=== PATIENT | female | born 1955 | race Caucasian/White ===

== ENCOUNTER 2019-05-20 06:31 | Day surgery (SDC) | payer OTHER ==
[2019-05-15 13:54] VITALS: BMI 16.8
[~2019-05-20 06:31] MED LIST: DEXAMETHASONE SOD PHOSPHATE 10 MG/ML 1 ML VIAL IV ONE; HYDROmorphone 0.5 MG/0.5 ML SYRINGE IVP PRN; LIDOCAINE 1% 20 ML VIAL (10MG/ML) FOR IV START INTRADERMA PRN; MIDAZOLAM 2 MG/2 ML VIAL IV PRN; ONDANSETRON 4 MG/2 ML VIAL IVP ONE; SCOPOLAMINE 1.5MG/72HR PATCH TRANSDERM ONE; TETRACAINE 0.5% OPHTH (PF) DROPS 4 ML BTL BOTH EYES ONE
[2019-05-20] MEDS: TETRACAINE 0.5% OPHTH DROPS 15 ML BTL BOTH EYES ONE ×2 (07:27→08:53)
[2019-05-20] MEDS: TROPICAMIDE 1% OPHTH DROPS 2 ML BTL LEFT EYE ONE ×3 (07:29→07:45)
[2019-05-20] MEDS: PHENYLEPHRINE 2.5% OPHTH DRP 2ML OP NR ×4 (07:31→07:49)
[2019-05-20] MEDS: CYCLOPENTOLATE 1% OPHTH SOLN 2 ML BTL OP ONE ×3 (07:33→07:47)
[2019-05-20] MEDS: LACTATED RINGERS 1,000 ML IV SCH ×2 (07:33→08:46)
[2019-05-20] MEDS: MOXIFLOXACIN HCL 0.5% DROPS 3 ML BTL OP ONE ×3 (07:35→07:51)
[2019-05-20 07:37] VITALS: TEMP 98.3
[2019-05-20] MEDS ORDERED: prednisoLONE ACETATE 1% OPHTH DROPS 5 ML BTL LEFT EYE SCH (08:00)
[2019-05-20] MEDS ORDERED: MIDAZOLAM 2 MG/2 ML VIAL ONE (08:47)
[2019-05-20] MEDS ORDERED: fentaNYL (PF) 50 MCG/ML 2 ML AMP ONE (08:47)
[2019-05-20] MEDS ORDERED: BALANCED SALT IRRIG SOLN COMB2 15 ML IRRIG.SOLN INTRAOCULA ONE (08:54)
[2019-05-20] MEDS ORDERED: DUOVISC KIT (BLUE BOX) INTRAOCULA ONE (08:54)
[2019-05-20] MEDS ORDERED: BRIMONIDINE TARTRATE 0.2% DROPS 5 ML BTL LEFT EYE ONE (08:54)
[2019-05-20] MEDS ORDERED: CIPROFLOXACIN 0.3% OPHTH SOLN 5 ML BTL LEFT EYE ONE (08:55)
[2019-05-20] MEDS ORDERED: EPINEPHrine (PF) 0.5 ML in BALANCED SALT IRRIG SOLN COMB2 500 ML IRRIGATION ONE (08:56)
--- NOTE | 2019-05-20 09:38 | P.OP ---
Date of Procedure: 05/20/19 Preoperative Diagnosis: Visually significant cataract, left eye Postoperative Diagnosis: Visually significant cataract, left eye Procedure(s) Performed: Cataract extraction with intraocular lens implant, left eye Implants: [employer] MI60L 23.0 d Anesthesia: local Surgeon: Josy Goncalves Estimated Blood Loss (ml): 0 Condition: stable Description of Procedure: The patient was identified in the preoperative holding area and informed consent was obtained. The patient understood the risks benefits alternatives and indications of cataract surgery. Patient showed the different options including intraocular lens options. The left eye was verified with the patient the patient was taken to the operating room. Patient was given IV sedation from the anesthesia team. Anesthetic drops were placed in the operative eye. The left eye was prepped and draped in usual sterile ophthalmic fashion. A lid speculum was placed in the operative eye and the microscope was swung into position. A paracentesis incision was made inferiorly in the left eye. Lidocaine was injected intracameral into the anterior chamber. Viscoelastic was injected into anterior chamber and a clear corneal incision was made temporally. A cystitome and Utrata forceps were used create a continuous curvilinear capsulorrhexis. Hydrodissection cannula was then used to hydrate and rotate the lens. Phaco was then carried out to divide the lens into 4 quadrants. Quadrants were removed using phaco emulsification. The irrigation-aspiration handpiece was then used to remove the cortex. Provisc was then used to inflate the capsular bag and the intraocular lens was placed in the bag without incident. The irrigation-aspiration handpiece was then used to remove the remaining viscoelastic. The wounds were checked and found to be watertight. The pressure was checked and found to be favorable. The speculum was then julio kristen. One drop of pred acetate and one drop of brimonidine and one drop of ciprofloxacin were placed in the operative eye. A shield was taped over the eye and the patient was taken recovery in stable condition. Patient was given instructions for post op care. Plan - Discharge Summary New Discharge Prescriptions: No Action Sertraline [Zoloft] 12.5 mg PO HS Midodrine HCl [ProAmantine] 2.5 mg PO BID Discharge Medication List Midodrine HCl [ProAmantine] 2.5 mg PO BID 05/15/19 [History] Sertraline [Zoloft] 12.5 mg PO HS 05/15/19 [History] Discharge Disposition: HOME SELF-CARE
[2019-05-20 09:47] VITALS: RESP 16
[2019-05-20 09:56] VITALS: BP 119/72; PULSE 55
== END 2019-05-20 10:22 | disposition home or self-care (01) ==
LOC: OR 06:31
PROVIDERS: ATTEND Ophthalmology
DX: H25.12 Age-related nuclear cataract, left eye (principal); I10 Essential (primary) hypertension; F17.210 Nicotine dependence, cigarettes, uncomplicated; Z79.899 Other long term (current) drug therapy; Z91.041 Radiographic dye allergy status; Z86.73 Personal history of transient ischemic attack (TIA), and cerebral infarction without residual deficits; Z90.49 Acquired absence of other specified parts of digestive tract; Z98.890 Other specified postprocedural states; F32.9 Major depressive disorder, single episode, unspecified
CPT/HCPCS: 66984; V2632; J2250; J0171; J3010

== ENCOUNTER → 2021-04-19 | Outpatient (CLI) | payer OTHER ==
[2021-04-19 11:15] LABS: Basophils # (A) 0.2 k/uL (0-0.2); Basophils % (A) 1 %; Eosinophils # (A) 0.2 k/uL (0-0.7); Eosinophils % (A) 2 %; HCT 46.1 % (34.0-46.0); HGB 14.9 gm/dL (11.4-16.0); Lymphocytes # (A) 2.2 k/uL (1.0-4.8); Lymphocytes % (A) 21 %; MCH 33.3 pg (25.0-35.0); MCHC 32.3 g/dL (31.0-37.0); MCV 102.9 fL (80.0-100.0); Macrocytosis Slight; Mean Platelet Volume 7.6; Monocytes # (A) 0.5 k/uL (0-1.0); Monocytes % (A) 5 %; Neutrophils # (A) 7.3 k/uL (1.3-7.7); Neutrophils % (A) 69 %; Platelet Count 360 k/uL (150-450); RBC 4.48 m/uL (3.80-5.40); RDW 12.3 % (11.5-15.5); WBC 10.5 k/uL (3.8-10.6)
[2021-04-19 11:27] LABS: Appearance,Urine Clear (Clear); Bilirubin,Urine Negative (Negative); Blood,Urine Negative (Negative); Color,Urine Yellow; Glucose,Urine (UA) Negative (Negative); Ketones,Urine Negative (Negative); Leukocyte Esterase,Urine Trace (Negative); Mucus,Urine Few /hpf; Nitrite,Urine Negative (Negative); PH, Urine 6.5 (5.0-8.0); Protein,Urine Trace (Negative); RBC,Urine <1 /hpf (0-5); Specific Gravity,Urine 1.017 (1.001-1.035); Squamous Epithelial Cell,Urine <1 /hpf (0-4); WBC,Urine 2 /hpf (0-5)
[2021-04-19 11:30] LABS: African American GFR (CKD) >90 (>60 ml/min/1.73 sqM); Anion Gap 7 mmol/L; Blood Urea Nitrogen 7 mg/dL (7-17); Calcium 10.2 mg/dL (8.4-10.2); Carbon Dioxide 28 mmol/L (22-30); Chloride 104 mmol/L (98-107); Glucose 95 mg/dL (74-99); Non-African American GFR(CKD) >90 (>60 ml/min/1.73 sqM); Potassium 4.9 mmol/L (3.5-5.1); Sodium 139 mmol/L (137-145)
== END | disposition home or self-care (01) ==
LOC: LABPAT 10:09
PROVIDERS: ATTEND Urology
DX: Z01.812 Encounter for preprocedural laboratory examination (principal); N39.0 Urinary tract infection, site not specified; N28.1 Cyst of kidney, acquired
CPT/HCPCS: 36415; 80048; 81001; 85025; 87086

== ENCOUNTER 2021-04-27 10:17 | Observation (INO) | payer OTHER ==
[~2021-04-27 10:17] MED LIST changes: -DEXAMETHASONE SOD PHOSPHATE 10 MG/ML 1 ML VIAL IV ONE; +DEXAMETHASONE SOD PHOSPHATE 4 MG/ML 1 ML VIAL IV ONE; +HEPARIN SODIUM,PORCINE/PF 5,000 UNIT/0.5 ML SYRINGE SQ PRN; -LIDOCAINE 1% 20 ML VIAL (10MG/ML) FOR IV START INTRADERMA PRN; -TETRACAINE 0.5% OPHTH (PF) DROPS 4 ML BTL BOTH EYES ONE
[2021-04-27] MEDS: LACTATED RINGERS 1,000 ML IV SCH (10:42)
[2021-04-27] MEDS ORDERED: LIDOCAINE 1% (10MG/ML) FOR IV START INTRADERMA ONE (10:42)
--- NOTE | 2021-04-27 11:44 | P.HPIHPCON ---
History of Present Illness H&P Date: 04/27/21 This is a 65 yo female with history of bilateral renal cysts. She is symptomatic from her cyst, and they are palpable on physical exam.large cyst on the right measured 6.6 cm, and on the left measured 5.5 cm, there are multiple bilateral cysts. Discussed with her the option of doing a bilateral cyst decortication. Discussed with her the risk which includes but not limited to bleeding, infection, injury to the kidney. Discussed given her multiple previous surgeries she is at increased risk of complications which includes but not limited to injury to the bowel, the liver, the spleen. Discussed the potential that she might have persistent pain even with cyst decortication. Discussed the potential recurrence. Discussed with her the risk from anesthesia. She understood all the risk and agreed to proceed with a robotic bilateral cyst decortication Consent for Procedure: I have explained the operation/procedure to the patient, including the risks, benefits, side effects, alternative therapies (including not receiving the proposed treatment or service), the likelihood of the patient achieving his/her goals, and potential recuperation problems for the procedure/sedation/analgesia, as well as any blood products, if indicated. I also explained to the patient the risks, benefits and side effects of the alternatives, as well as the risks related to not receiving the proposed procedure, care, treatment, or services. Past Medical History Past Medical History: CVA/TIA, Pneumonia, Seizure Disorder Additional Past Medical History / Comment(s): hx LOW BLOODPRESSURE "states heart stopped for 15-seconds" and STATES SYNCOPE- PASSES OUT(prior to pacemaker)., STATES SYMPTOMS OF TIA's 10 YEARS AGO- NO RESIDUAL EFFECTS. varicose veins, hx IBS, cysts on jesús kidneys, History of Any Multi-Drug Resistant Organisms: None Reported Past Surgical History: Breast Surgery, Cholecystectomy, Pacemaker Additional Past Surgical History / Comment(s): OVARIAN CYSTS removed, tilt table test, left breast biopsy, left cataract Past Anesthesia/Blood Transfusion Reactions: Motion Sickness, Postoperative Nausea & Vomiting (PONV) Type of Cardiac Device: Permanent Pacemaker Device Placement Date:: 08/25/2019 Smoking Status: Current every day smoker - Past Family History Sister(s) Family Medical History: Cancer Additional Family Medical History / Comment(s): breast Father Family Medical History: Myocardial Infarction ([place]) Mother Family Medical History: Congestive Heart Failure (CHF), COPD Medications and Allergies Home Medications Medication Instructions Recorded Confirmed Type Sertraline [Zoloft] 12.5 mg PO HS 05/15/19 04/27/21 History Fludrocortisone [Florinef] 0.05 mg PO DAILY 04/24/21 04/27/21 History Hyoscyamine Sulfate [Hyoscyamine 0.125 mg SL DAILY PRN 04/24/21 04/27/21 History Sulfate SL] Ondansetron [Zofran] 4 mg PO DAILY PRN 04/24/21 04/27/21 History Allergies Allergy/AdvReac Type Severity Reaction Status Date / Time Iodinated Contrast Media Allergy Unknown Nausea & Verified 04/24/21 11:01 [Iodinated Contrast- Oral Vomiting and IV Dye] antibioitics(not sure names) Allergy Nausea & Uncoded 04/24/21 11:01 Vomiting Surgical - Exam Vital Signs Temp Pulse Resp BP Pulse Ox 98.1 F 60 16 133/60 97 04/27/21 10:35 04/27/21 10:35 04/27/21 10:35 04/27/21 10:35 04/27/21 10:35 - General well developed, well nourished - Eyes PERRL, normal ocular movement - ENT normal nares, normal mucosa Assessment and Plan Assessment: 65-year-old female history of bilateral renal cysts -OR for bilateral cyst decortication
[2021-04-27] MEDS ORDERED: NEOSTIGMINE 1 MG/ML 10 ML VIAL ONE (12:09)
[2021-04-27] MEDS ORDERED: fentaNYL (PF) 50 MCG/ML 2 ML AMP ONE (12:09)
[2021-04-27] MEDS ORDERED: MIDAZOLAM 2 MG/2 ML VIAL ONE (12:09)
[2021-04-27] MEDS ORDERED: LIDOCAINE 1% INJ 10MG/ML (20 ML MDV) ONE (12:09)
[2021-04-27] MEDS ORDERED: SUCCINYLCHOLINE CHLORIDE 100 MG/5 ML SYR IV ONE (12:09)
[2021-04-27] MEDS ORDERED: PROPOFOL 10 MG/ML 20 ML VIAL IV ONE (12:09)
[2021-04-27] MEDS ORDERED: GLYCOPYRROLATE 0.2 MG/ML 2 ML VIAL ONE (12:09)
[2021-04-27] MEDS ORDERED: ROCURONIUM 10 MG/ML (5 ML VIAL) IV ONE (12:09)
[2021-04-27] MEDS ORDERED: HYDROmorphone (PF) 1 MG/ML ONE (12:09)
[2021-04-27] MEDS ORDERED: BUPIVACAINE (PF) 0.5% 30 ML VIAL SQ ONE (12:48)
[2021-04-27] MEDS ORDERED: LACTATED RINGERS 1,000 ML IV ONE (13:00)
[2021-04-27] MEDS ORDERED: ONDANSETRON 4 MG TAB PO PRN (15:02)
[2021-04-27] MEDS ORDERED: HYOSCYAMINE SULFATE 0.125 MG TAB PO PRN (15:02)
--- NOTE | 2021-04-27 15:02 | P.OP ---
Date of Procedure: 04/27/21 Preoperative Diagnosis: Bilateral renal cyst Postoperative Diagnosis: Same Procedure(s) Performed: Robotic-assisted laparoscopic bilateral cyst decortication, lysis of adhesion Implants: none Anesthesia: PEPE Surgeon: Kamar Clement Hydraulic Modeling Engineer #1: Shannon Max Estimated Blood Loss (ml): 25 Pathology: other (bilateral renal cyst) Condition: stable Disposition: PACU Indications for Procedure: This is a 65 yo female with history of bilateral renal cysts. She is symptomatic from her cyst, and they are palpable on physical exam.large cyst on the right measured 6.6 cm, and on the left measured 5.5 cm, there are multiple bilateral cysts. Discussed with her the option of doing a bilateral cyst decortication. Discussed with her the risk which includes but not limited to bleeding, infection, injury to the kidney. Discussed given her multiple previous surgeries she is at increased risk of complications which includes but not limited to injury to the bowel, the liver, the spleen. Discussed the potential that she might have persistent pain even with cyst decortication. Discussed the potential recurrence. Discussed with her the risk from anesthesia. She understood all the risk and agreed to proceed with a robotic bilateral cyst decortication Operative Findings: 2 large renal cyst on the right, extensive adhesion along the right side 2 large cysts on the left, when seen along the upper pole, additional parapelvic cyst Description of Procedure: The patient was taken to the operating room . General anesthesia was induced. She was prepped and draped in sterile fashion, and was placed in modified flank position attention was then carried to the left side first.. All pressure points were padded. The abdominal insufflation was achieved with the Veress needle. A 8 mm camera port was placed. Robotic trocars and assistant professor of sociology ports were placed under direct vision. The robot was docked into place. Patient had adhesion along the left upper quadrant, the omentum was stuck along the medial upper quadrant, this was lysed down using the robot . The colon was mobilized medially by incising along the white line of Toldt. The spleen and the pancreas were further mobilized, at this time the upper pole cyst was exposed an incision was made in the cyst the cyst was drained, the cyst wall was excised and sent to pathology. The edges of the cyst were cauterize. This time attention was carried to the parapelvic cysts. The kidney was further mobilized along the psoas plane. The parapelvic cysts were in close proximity to the hilum, making complete excision of the cyst wall not feasible given the risk of injuring the renal vessels. At this time a window was made in the cyst and the cyst was drained. No additional cyst were visualized. This time the robot was de- docked. All the robotic incisions were closed using 4-0 moncyrl. The midline incision was covered with a Tegaderm. At this time the patient was positioned for the right side. The 12 mm port was placed through the previous midline incision, and the camera was advanced through the port. Laparoscopy showed extensive adhesion along the right upper quadrant from her previous open cholecystectomy., A 5 mm port was placed in the upper quadrant and using the laparoscopic scissors lysis of adhesion was performed, more than 45 minutes was spent lysing adhesions given her extensive adhesions. Following the lysis of adhesion was able to place the 4 robotic trocors. The robot was docked in place. The colon was mobilized, the duodenum was kocherized to better expose the renal cysts. At this time the 2 large lower pole renal cysts were visualized, incision was made in the cyst and the cyst was drained, the cyst wall was excised and sent to pathology, both cyst were excised. Both areas of the cyst edges were cauterized. There was no evidence of bleeding, and all counts were correct. The robot was undocked, Fascia of midline incision was closed using 0 Vicryl Skin was closed with 4-0 moncryl subcuticular sutures and Dermabond. Local anesthetic was infiltrated. The patient was awoken from general anesthesia in stable condition. Please refer to the final pathology report for final diagnosis.
[2021-04-27] MEDS ORDERED: HYDROmorphone 1 MG/ML 1 ML SYRINGE IVP PRN (15:03)
[2021-04-27] MEDS ORDERED: ALBUTEROL NEBULIZED 2.5 MG/3 ML INHALATION ONE ×2 (15:20→15:22)
[2021-04-27 15:36] VITALS: RESP 16
[2021-04-27] MEDS: KETOROLAC 15 MG/ML 1 ML VIAL IVP SCH (17:40)
[2021-04-27] MEDS: D5-0.45% NACL WITH KCL 20MEQ/L 1,000 ML IV SCH (18:04)
[2021-04-27] MEDS ORDERED: SERTRALINE 25 MG TAB PO SCH (21:00)
[2021-04-27] MEDS: ONDANSETRON 4 MG/2 ML VIAL IVP PRN (21:24)
[2021-04-28] MEDS: HEPARIN SODIUM,PORCINE/PF 5,000 UNIT/0.5 ML SYRINGE SQ SCH ×3 (00:25→14:04)
[2021-04-28] MEDS: KETOROLAC 15 MG/ML 1 ML VIAL IVP SCH ×3 (00:25→12:26)
[2021-04-28] MEDS: LACTATED RINGERS 1,000 ML IV SCH (00:26)
[2021-04-28] MEDS: ONDANSETRON 4 MG/2 ML VIAL IVP PRN (04:50)
[2021-04-28] MEDS ORDERED: ACETAMINOPHEN TAB 325 MG TAB PO PRN (04:57)
[2021-04-28 08:49] VITALS: BP 95/59; PULSE 65; TEMP 98.2
[2021-04-28] MEDS ORDERED: FLUDROCORTISONE 0.1 MG TAB PO SCH (09:00)
[2021-04-28] MEDS: D5-0.45% NACL WITH KCL 20MEQ/L 1,000 ML IV SCH (12:26)
[2021-04-28 13:04] VITALS: BMI 16.7
--- NOTE | 2021-04-28 17:50 | P.DS ---
Providers Date of admission: 04/28/21 15:44 Attending physician: Kamar Clement MD Primary care physician: Chaim Beebe [facility] Course: This is a 65-year-old female history of bilateral renal cysts. She symptomatic from her cyst. She underwent a robotic-assisted laparoscopic cyst decortication, please see op note dated April 27 for surgery detail. Patient was admitted to the hospital postoperatively. She did well in the postoperative period, Pham was removed on postop day #1. Patient was discharged home on postoperative day #1. At time of discharge she was tolerating a diet, ambulating, and pain was well-controlled Patient Condition at Discharge: Fair Plan - Discharge Summary Discharge Rx Participant: No New Discharge Prescriptions: New traMADol HCL [Ultram] 50 mg PO Q6HR PRN 3 Days #12 tab PRN Reason: Pain No Action Sertraline [Zoloft] 12.5 mg PO HS Hyoscyamine Sulfate [Hyoscyamine Sulfate SL] 0.125 mg SL DAILY PRN PRN Reason: cramps Fludrocortisone [Florinef] 0.05 mg PO DAILY Ondansetron [Zofran] 4 mg PO DAILY PRN PRN Reason: Nausea Discharge Medication List Sertraline [Zoloft] 12.5 mg PO HS 05/15/19 [History] Fludrocortisone [Florinef] 0.05 mg PO DAILY 04/24/21 [History] Hyoscyamine Sulfate [Hyoscyamine Sulfate SL] 0.125 mg SL DAILY PRN 04/24/21 [History] Ondansetron [Zofran] 4 mg PO DAILY PRN 04/24/21 [History] traMADol HCL [Ultram] 50 mg PO Q6HR PRN 3 Days #12 tab 04/28/21 [Rx] Patient Instructions/Handouts: Kidney Cyst (GEN) Activity/Diet/Wound Care/Special Instructions: No heavy lifting or straining for 4 weeks You may shower no baths Discharge Disposition: HOME SELF-CARE
== END 2021-04-28 15:45 | disposition home or self-care (01) ==
LOC: OR 10:17 → 4SSUR 16:01 → OR 23:09 → 4SSUR 04-28 15:44
PROVIDERS: ADMIT Urology; ATTEND Urology
DX: N28.1 Cyst of kidney, acquired (principal); G40.909 Epilepsy, unspecified, not intractable, without status epilepticus; K58.9 Irritable bowel syndrome, unspecified; I83.90 Asymptomatic varicose veins of unspecified lower extremity; F17.210 Nicotine dependence, cigarettes, uncomplicated; Z79.52 Long term (current) use of systemic steroids; Z79.899 Other long term (current) drug therapy; Z88.1 Allergy status to other antibiotic agents; Z91.041 Radiographic dye allergy status; Z87.01 Personal history of pneumonia (recurrent); Z86.73 Personal history of transient ischemic attack (TIA), and cerebral infarction without residual deficits; Z95.0 Presence of cardiac pacemaker; Z90.49 Acquired absence of other specified parts of digestive tract; Z98.42 Cataract extraction status, left eye; Z87.42 Personal history of other diseases of the female genital tract; Z98.890 Other specified postprocedural states; Z86.79 Personal history of other diseases of the circulatory system; Z80.3 Family history of malignant neoplasm of breast; Z82.49 Family history of ischemic heart disease and other diseases of the circulatory system; Z82.5 Family history of asthma and other chronic lower respiratory diseases
CPT/HCPCS: 50541; S2900; 86850; 86900; 86901; 88305

== ENCOUNTER → 2021-11-09 | Outpatient (CLI) | payer OTHER ==
--- NOTE | 2021-11-09 14:14 | US ---
EXAMINATION TYPE: US kidneys/renal and bladder DATE OF EXAM: 11/09/2021 COMPARISON: NONE CLINICAL HISTORY: N28.1 RENAL CYST. renal cysts EXAM MEASUREMENTS: Right Kidney: 8.4 x 4.0 x 4.8 cm Left Kidney: 7.4 x 3.6 x 3.3 cm Right Kidney: Cystic area lower pole measuring 3.2 x 2.7 x 3.2 cm. Left Kidney: Mild amount of hydronehrosis seen Bladder: anechoic Bilateral Jets seen: yes IMPRESSION: 1. Right renal cyst. 2. Mild left hydronephrosis
== END | disposition home or self-care (01) ==
LOC: RADUSWWP 13:25
PROVIDERS: ATTEND Urology
DX: N28.1 Cyst of kidney, acquired (principal); N13.30 Unspecified hydronephrosis
CPT/HCPCS: 76770

== ENCOUNTER → 2022-04-10 | Outpatient (CLI) | payer OTHER ==
--- NOTE | 2022-04-11 09:09 | US ---
EXAMINATION TYPE: US pelvic complete DATE OF EXAM: 04/10/2022 COMPARISON: NONE CLINICAL HISTORY: 66-year-old female R10.31 RT GROIN PAIN. Right pelvic and groin pain TECHNIQUE: Transabdominal sonographic images of the pelvis were acquired. Date of LMP: 25 years ago FINDINGS: EXAM MEASUREMENTS: Uterus: 5.6 x 2.4 x 2.7 cm Endometrial Stripe: 0.6 cm Right Ovary: 2.1 x 1.0 x 1.3 cm Left Ovary: 2.1 x 1.1 x 1.4 cm 1. Uterus: retroverted and otherwise within normal limits 2. Endometrium: Borderline thickened for a postmenopausal female. 3. Right Ovary: wnl 4. Left Ovary: wnl 5. Bilateral Adnexa: wnl 6. Posterior cul-de-sac: wnl Plate Shear Operator notes: Scanned right adnexa/groin at patients area of concern - appears wnl IMPRESSION: 1. Retroverted uterus. Endometrial stripe borderline thickened for a postmenopausal female. Query any bleeding. Recommend short interval follow-up with transvaginal scanning if possible, such as in 3 mo nths, to reassess stripe thickness. 2. Additional scanning along the right adnexa/groin region. No specific sonographic abnormality is se en.
--- NOTE | 2022-04-20 15:50 | MM ---
Reason for Exam: Screening (asymptomatic). Last mammogram was performed 5 year(s) and 0 month(s) ago. Patient History: Menarche at age 16. First Full-Term at age 25. Postmenopausal. 09/09/2016, MG stereo VAD BX LT - 2 on the Left side. Sister had breast cancer, right, age 60. Sister had breast cancer, left, age 60. Risk Values: Jo 5 year model risk: 7.0%. NCI Lifetime model risk: 25.5%. Tissue Density: The breast tissue is heterogeneously dense. This may lower the sensitivity of mammography. Findings: Analyzed By CAD. Left-sided retroareolar asymmetric nodular density noted. Additional views are recommended. Benign calcifications present. No evidence for right-sided mass or distortion. Overall Assessment: Incomplete: need additional imaging evaluation, BI-RAD 0 Management: Diagnostic Mammogram of the left breast. A clinical breast exam by your physician is recommended on an annual basis and results should be correlated with mammographic findings. Electronically signed and approved by: James Alberts M.D. Radiologis
== END | disposition home or self-care (01) ==
LOC: RADMAMWWP 15:14
PROVIDERS: ATTEND Family Medicine
DX: Z12.31 Encounter for screening mammogram for malignant neoplasm of breast (principal); N85.4 Malposition of uterus; Z78.0 Asymptomatic menopausal state; Z80.3 Family history of malignant neoplasm of breast
CPT/HCPCS: 76856; 77067

== ENCOUNTER → 2022-05-28 | Outpatient (CLI) | payer OTHER ==
--- NOTE | 2022-05-28 19:25 | BD ---
EXAMINATION TYPE: Axial Bone Density DATE OF EXAM: 05/28/2022 COMPARISON: NONE CLINICAL HISTORY: 66 years year old Female. ICD-10 CODE: M810 KNOWN OSTEOPOROSIS, Height: 63 Weight: 98.6 FRAX RISK QUESTIONS: Alcohol (3 or more units per day): NO Family History (Parent hip fracture): NO Glucocorticoids (More than 3mos): NO History of Fracture in Adulthood: NO Secondary Osteoporosis: 1. Type 1 Diabetes: NO 2. Hyperthyroidism: NO 3. Menopause before 45: NO 4. Malnutrition: YES 5. Chronic liver disease: NO Rheumatoid Arthritis: NO Current Tobacco Use: YES RISK FACTORS HISTORY OF: Hip Fracture (Right/Left): NO Spine Fracture: NO History of Wrist Fracture: NO Surgery to Spine/Hip(right/left)/Wrist (right/left): NO Family History of Osteoporosis: NO Active: NO Diet low in dairy products/other sources of calcium: NO Postmenopausal woman: YES Take estrogen and/or progesterone medications: NO Lost more than 2 inches in height since high school: NO Frequent falls: NO Poor Health: YES Hyperparathyroidism: NO Adrenal Insufficiency: NO MEDICATIONS: Prednisone or other steroids: NO Thyroid Medications: NO Osteoporosis Medications: NO Additional Medications: DEPRESSION MEDS, VIT D, EXAM MEASUREMENTS: Bone mineral densitometry was performed using the [facility]. Bone mineral density as measured about the Lumbar spine is: ----- L1-L4(G/cm2): 0.941 T Score Values are as follows: ----- L1: -2.4 ----- L2: -2.4 ----- L3: -1.4 ----- L4: -2.0 ----- L1-L4: -2.0 BASELINE STUDY Bone mineral density about the R hip (g/cm2): 0.810 Bone mineral density about the L hip (g/cm2): 0.776 T Score values are as follows: -----R Neck: -1.6 -----L Neck: -1.9 -----R Total: -2.7 -----L Total: -2.3 BASELINE STUDY FRAX%s: The graph provided illustrates a 8.6% chance for a major osteoporotic fx and a 2.2% chance fo r the hips probability for fx in 10 years time. IMPRESSION: Osteoporosis (T Score less than -2.5). There is increased fracture risk and therapy is usually indicated based on age. Re-Screen 1-2 years. NOTE: T-SCORE=SD OF THE YOUNG ADULT MEAN.
== END | disposition home or self-care (01) ==
LOC: RADBDWWP 10:53
PROVIDERS: ATTEND Family Medicine
DX: M85.89 Other specified disorders of bone density and structure, multiple sites (principal)
CPT/HCPCS: 77080

== ENCOUNTER → 2022-08-17 | Outpatient (CLI) | payer OTHER ==
--- NOTE | 2022-08-17 11:53 | US ---
EXAMINATION TYPE: US transvaginal DATE OF EXAM: 08/17/2022 COMPARISON: Prior pelvic ultrasound April 10, 2022 CLINICAL HISTORY: R93.89 thickening of the endometrium. Prior abnormal ultrasound. TECHNIQUE: Transvaginal (TV). 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 Uterus: Anteverted Heterogenous, small in size 2. Endometrium: fluid visualized in endometrial cavity 3. Right Ovary: wnl 4. Left Ovary: follicle vs tiny simple cyst - 1.0 cm. 5. Bilateral Adnexa: wnl 6. Posterior cul-de-sac: no free fluid Endometrial stripe currently within normal limits with tiny amount of fluid in the endometrial canal. Small sized ovaries redemonstrated correlate with patient's postmenopausal age. There is 8 mm simple thin-walled cyst in the left ovary seen on current study. IMPRESSION: As above.
== END | disposition home or self-care (01) ==
LOC: RADUSWWP 10:56
PROVIDERS: ATTEND Family Medicine
DX: N83.202 Unspecified ovarian cyst, left side (principal); R93.89 Abnormal findings on diagnostic imaging of other specified body structures
CPT/HCPCS: 76830

== ENCOUNTER → 2023-04-11 | Outpatient (CLI) | payer MEDICARE, OTHER ==
--- NOTE | 2023-04-12 20:37 | MM ---
Reason for Exam: Screening (asymptomatic). Last screening mammogram was performed 12 month(s) ago. Patient History: Menarche at age 16. First Full-Term at age 25. Postmenopausal. Patient has history of breast feeding. 04/04/2017, MG stereo VAD BX LT - 2 on the Left side. Sister had breast cancer, right, age 60. Sister had breast cancer, left, age 60. Risk Values: Jo 5 year model risk: 7.2%. NCI Lifetime model risk: 24.7%. Prior Study Comparison: 01/08/2018 Left MG diagnostic mammo LT w CAD - 2, [place]. 04/10/2022 Bilateral MG screening mammo w CAD, [place]. 04/27/2022 Left MG work up mamm w CAD LT, [facility]. Tissue Density: The breast tissue is heterogeneously dense. This may lower the sensitivity of mammography. Findings: Analyzed By CAD. Generator device projects over the left pectoralis. Microclip left breast from prior biopsy. Areas of asymmetric density remain unchanged. No significant change from prior exams. ASSESSMENT:. Overall Assessment: Benign, BI-RAD 2 Management: Screening Mammogram of both breasts in 1 year. See note below in regards to patient's increased 5 year Jo score and lifetime risk score. Patient should continue monthly self-breast exams. A clinical breast exam by your physician is recommended on an annual basis. This exam should not preclude additional follow-up of suspicious palpable abnormalities. Note on Jo scores and lifetime risk: 1. A Jo score greater than 3% is considered moderate risk. If this is the case, consider specialist referral to assess eligibility for a risk reducing agent. 2. If overall lifetime risk for the development of breast cancer is 20% or higher, the patient may qualify for future screening with alternating mammogram and breast MRI. Electronically signed and approved by: Cresencio Sterling M.D. Radiologist
== END | disposition home or self-care (01) ==
LOC: RADMAMWWP 12:38
PROVIDERS: ATTEND Family Medicine
DX: Z12.31 Encounter for screening mammogram for malignant neoplasm of breast (principal); Z78.0 Asymptomatic menopausal state; Z80.3 Family history of malignant neoplasm of breast
CPT/HCPCS: 77063; 77067